=== PATIENT | male | born 1955 | race African-American/Black ===

== ENCOUNTER 2024-08-04 15:30 | Inpatient (IN) | payer MEDICARE ==
[~2024-08-04] VITALS: Ht 190.5 cm; Wt 92.1 kg
[2024-08-04 14:30] VITALS: BP 134/85; PULSE 80; RESP 18; TEMP 98.1; O2SAT 95
[2024-08-04] MEDS ORDERED: DEXTROSE 50%-WATER 25 GM/50 ML SYRINGE IVP PRN (16:30)
[2024-08-04] MEDS: HYDROCODONE/ACETAMINOPHEN 5-325 MG TABLET PO PRN (16:43)
[2024-08-04] MEDS: GABAPENTIN 400 MG CAPSULE PO SCH (17:23)
[2024-08-04] MEDS: INFLUENZA VIRUS VACCINE TVS (6MO+) 2024-25/PF 45 MCG/0.5 ML SYRINGE IM. ONE (17:24)
[2024-08-04] MEDS: PNEUMOCOCCAL VACCINE POLYVALENT 0.5 ML SYRINGE [PPSV23] IM. ONE (17:24)
[2024-08-04 17:31] LABS: GLUCOMETER DEV NAME(LOC) 2WR.2B; GLUCOSE,POINT OF CARE 130 MG/DL (70-110)
[2024-08-04 20:04] VITALS: BP 154/80; PULSE 88; RESP 18; TEMP 98.2; O2SAT 99
[2024-08-04] MEDS: ETHYL ALCOHOL 62% ANTISEPTIC NASAL SANITIZER 0.6 ML AMPUL NASAL SCH (20:07)
[2024-08-04] MEDS: DOCUSATE SODIUM 250 MG CAPSULE PO SCH (20:09)
[2024-08-04] MEDS: TAMSULOSIN HCL 0.4 MG CAPSULE PO SCH (20:09)
[2024-08-04] MEDS: ATORVASTATIN CALCIUM 40 MG TABLET PO SCH (20:10)
[2024-08-04] MEDS: SENNOSIDES 8.6 MG TABLET PO SCH (20:10)
[2024-08-04] MEDS: MELATONIN 5 MG TABLET PO SCH (20:10)
[2024-08-04] MEDS: INSULIN GLARGINE,HUM.REC.ANLOG 100 UNITS/ML SQ SCH (20:26)
[2024-08-04] MEDS: INSULIN LISPRO 100 UNITS/ML SQ PRN (20:27)
[2024-08-04 21:56] LABS: GLUCOMETER DEV NAME(LOC) 2WR.1D; GLUCOSE,POINT OF CARE 178 MG/DL (70-110)
[2024-08-04 22:00] VITALS: O2SAT 99
[2024-08-04] MEDS: HEPARIN SODIUM,PORCINE 5,000 UNITS/ML VIAL SQ SCH (23:02)
[2024-08-05] MEDS: ACETAMINOPHEN 325 MG TABLET PO PRN (03:25)
[2024-08-05 07:10] LABS: GLUCOMETER DEV NAME(LOC) 2WR.2B; GLUCOSE,POINT OF CARE 75 MG/DL (70-110)
[2024-08-05] MEDS: DAPAGLIFLOZIN PROPANEDIOL 5 MG TABLET PO SCH (08:15)
[2024-08-05 08:25] LABS: BASOPHILS % (AUTO) 1.4 % (0.0-2.0); EOSINOPHILS % (AUTO) 6.2 % (1.0-6.0); HEMATOCRIT 37.9 % (41-53); HEMOGLOBIN 12.4 g/dL (13.5-17.5); LYMPHOCYTES # (AUTO) 0.6 K/uL (1.0-4.8); MEAN CORPUSCULAR HGB CONC 32.8 G/dL (31.0-37.0); MEAN CORPUSCULAR VOLUME 91 fL (80-100); MONOCYTES # (AUTO) 0.4 K/uL (0.1-1.0); MONOCYTES % (AUTO) 16.2 % (2.0-9.0); NEUTROPHILS # (AUTO) 1.1 K/uL (1.8-7.7); NEUTROPHILS % (AUTO) 48.2 % (40.0-70.0); PLATELET COUNT (AUTO) 131 K/uL (150-450); RED BLOOD CELL COUNT(AUTO) 4.15 MIL/uL (4.50-5.90); RED CELL DISTRIBUTION WIDTH 15.7 % (11.5-14.5); WHITE BLOOD COUNT (AUTO) 2.3 K/uL (4.5-11.0)
[2024-08-05 08:30] VITALS: BP 130/83; PULSE 88; RESP 18; TEMP 98.2; O2SAT 98
[2024-08-05 08:36] LABS: ALANINE AMINOTRANSFERASE 83 U/L (12-78); ALBUMIN 2.9 g/dL (3.4-5.0); ALKALINE PHOSPHATASE 62 U/L (46-116); ANION GAP 5 mmol/L (8-16); ASPARTATE AMINOTRANSFERASE 51 U/L (15-37); BILIRUBIN,TOTAL 0.7 mg/dL (0.1-1.0); CALCIUM, TOTAL 8.7 mg/dL (8.8-10.5); CARBON DIOXIDE 31 mmol/L (22-29); CHLORIDE 101 mmol/L (98-107); CREATININE 0.72 mg/dL (0.60-1.30); GLOMERULAR FILTR. RATE CALC > 60 mL/min (>60); GLUCOSE,RANDOM 135 mg/dL (70-110); POTASSIUM 4.1 mmol/L (3.5-5.1); SODIUM SERUM 137 mmol/L (136-145); TOTAL PROTEIN, SERUM 7.3 g/dL (6.4-8.2); UREA NITROGEN, BLOOD 16 mg/dL (7-18)
[2024-08-05 08:46] LABS: RBC MORPHOLOGY COMMENT NORMAL RBC MORPH
[2024-08-05 11:26] LABS: GLUCOMETER DEV NAME(LOC) 2WR.2B; GLUCOSE,POINT OF CARE 126 MG/DL (70-110)
[2024-08-05 11:47] VITALS: O2SAT 98
[2024-08-05] MEDS: LIDOCAINE 5% 36 GM OINTMENT TP PRN (11:57)
[2024-08-05 17:16] LABS: GLUCOMETER DEV NAME(LOC) 2WR.1D; GLUCOSE,POINT OF CARE 150 MG/DL (70-110)
[2024-08-05 20:19] VITALS: BP 136/75; PULSE 86; RESP 18; TEMP 98.7; O2SAT 99
[2024-08-05] MEDS: NORTRIPTYLINE HCL 25 MG CAPSULE PO SCH (21:03)
[2024-08-05 21:55] LABS: GLUCOMETER DEV NAME(LOC) 2WR.1D; GLUCOSE,POINT OF CARE 104 MG/DL (70-110)
[2024-08-05 22:38] VITALS: O2SAT 99
[2024-08-05 23:30] VITALS: BP 131/81; PULSE 85; RESP 20; TEMP 98.4; O2SAT 98
[2024-08-06 06:55] LABS: GLUCOMETER DEV NAME(LOC) 2WR.1D; GLUCOSE,POINT OF CARE 149 MG/DL (70-110)
[2024-08-06 08:02] VITALS: BP 139/92; PULSE 100; RESP 18; TEMP 97.9; O2SAT 98
[2024-08-06 08:03] VITALS: PULSE 88
[2024-08-06 11:40] VITALS: BP 140/106; PULSE 89; RESP 18
[2024-08-06 11:48] VITALS: BP 135/94; PULSE 92; RESP 18
[2024-08-06 11:55] VITALS: BP 135/97; PULSE 102; RESP 18
[2024-08-06 13:01] LABS: GLUCOMETER DEV NAME(LOC) 2WR.2B; GLUCOSE,POINT OF CARE 94 MG/DL (70-110)
[2024-08-06 18:00] LABS: GLUCOMETER DEV NAME(LOC) 2WR.2B; GLUCOSE,POINT OF CARE 209 MG/DL (70-110)
[2024-08-06 20:00] VITALS: BP 125/77; PULSE 89; RESP 18; TEMP 98.6; O2SAT 98
[2024-08-06 21:31] LABS: GLUCOMETER DEV NAME(LOC) 2WR.1D; GLUCOSE,POINT OF CARE 145 MG/DL (70-110)
[2024-08-07 06:34] VITALS: BP 121/79; PULSE 90; RESP 18; TEMP 98.2; O2SAT 99
[2024-08-07 07:06] LABS: GLUCOMETER DEV NAME(LOC) 2WR.2B; GLUCOSE,POINT OF CARE 118 MG/DL (70-110)
[2024-08-07 08:01] VITALS: BP 128/85; PULSE 96; RESP 19; TEMP 98.3; O2SAT 99
[2024-08-07] MEDS: ASPIRIN 81 MG CHEWABLE TABLET PO SCH (08:08)
[2024-08-07 12:55] LABS: GLUCOMETER DEV NAME(LOC) 2WR.2B; GLUCOSE,POINT OF CARE 170 MG/DL (70-110)
[2024-08-07 17:30] LABS: GLUCOMETER DEV NAME(LOC) 2WR.2B; GLUCOSE,POINT OF CARE 151 MG/DL (70-110)
[2024-08-07 20:02] VITALS: BP 129/77; PULSE 89; RESP 19; TEMP 98.1; O2SAT 98
[2024-08-07 20:35] LABS: GLUCOMETER DEV NAME(LOC) 2WR.2B; GLUCOSE,POINT OF CARE 188 MG/DL (70-110)
[2024-08-07 22:46] VITALS: O2SAT 98
[2024-08-08 06:51] LABS: GLUCOMETER DEV NAME(LOC) 2WR.1D; GLUCOSE,POINT OF CARE 77 MG/DL (70-110)
[2024-08-08 08:35] VITALS: BP 131/89; PULSE 97; RESP 19; TEMP 97.9; O2SAT 94
[2024-08-08 09:43] VITALS: O2SAT 94
[2024-08-08 12:21] LABS: GLUCOMETER DEV NAME(LOC) 2WR.2B; GLUCOSE,POINT OF CARE 129 MG/DL (70-110)
[2024-08-08 18:50] LABS: GLUCOMETER DEV NAME(LOC) 2WR.2B; GLUCOSE,POINT OF CARE 230 MG/DL (70-110)
[2024-08-08 20:07] VITALS: BP 102/59; PULSE 90; RESP 19; TEMP 98.3; O2SAT 98
[2024-08-08 20:15] LABS: GLUCOMETER DEV NAME(LOC) 2WR.2B; GLUCOSE,POINT OF CARE 144 MG/DL (70-110)
[2024-08-08 21:13] VITALS: O2SAT 98
[2024-08-09 07:56] LABS: GLUCOMETER DEV NAME(LOC) 2WR.2B; GLUCOSE,POINT OF CARE 55 MG/DL (70-110)
[2024-08-09 07:56] LABS: GLUCOMETER DEV NAME(LOC) 2WR.2B; GLUCOSE,POINT OF CARE 60 MG/DL (70-110)
[2024-08-09 08:00] VITALS: BP 131/88; PULSE 98; RESP 18; TEMP 98.2; O2SAT 100
[2024-08-09 12:51] LABS: GLUCOMETER DEV NAME(LOC) 2WR.2B; GLUCOSE,POINT OF CARE 74 MG/DL (70-110)
[2024-08-09 17:56] LABS: GLUCOMETER DEV NAME(LOC) 2WR.2B; GLUCOSE,POINT OF CARE 107 MG/DL (70-110)
[2024-08-09 20:00] VITALS: BP 118/68; PULSE 91; RESP 20; TEMP 98.3; O2SAT 97
[2024-08-09 20:45] LABS: GLUCOMETER DEV NAME(LOC) 2WR.1D; GLUCOSE,POINT OF CARE 145 MG/DL (70-110)
[2024-08-10] MEDS ORDERED: SENN-376 PO (02:23)
[2024-08-10] MEDS ORDERED: ATOR40TA28 PO (02:23)
[2024-08-10] MEDS ORDERED: GABA-1201 PO (02:23)
[2024-08-10] MEDS ORDERED: INSU100V SQ (02:23)
[2024-08-10] MEDS ORDERED: INSLAN SQ (02:23)
[2024-08-10] MEDS ORDERED: DOCU-412 PO (02:23)
[2024-08-10] MEDS ORDERED: TAMS0.4C94 PO (02:23)
[2024-08-10] MEDS ORDERED: DAPA10TA PO (02:23)
[2024-08-10] MEDS ORDERED: NORT25 PO (02:23)
[2024-08-10] MEDS ORDERED: ASPI-1450 PO (02:23)
[2024-08-10 06:51] LABS: GLUCOMETER DEV NAME(LOC) 2WR.1D; GLUCOSE,POINT OF CARE 81 MG/DL (70-110)
[2024-08-10 08:05] VITALS: BP 123/87; PULSE 87; RESP 18; TEMP 98.4; O2SAT 98
[2024-08-10 09:35] VITALS: O2SAT 98
[2024-08-10 11:56] LABS: GLUCOMETER DEV NAME(LOC) 2WR.2B; GLUCOSE,POINT OF CARE 90 MG/DL (70-110)
[2024-08-10 17:06] LABS: GLUCOMETER DEV NAME(LOC) 2WR.2B; GLUCOSE,POINT OF CARE 102 MG/DL (70-110)
[2024-08-10 20:00] VITALS: BP 132/87; PULSE 97; RESP 18; TEMP 98.5; O2SAT 100
[2024-08-10 20:25] LABS: GLUCOMETER DEV NAME(LOC) 2WR.2B; GLUCOSE,POINT OF CARE 153 MG/DL (70-110)
[2024-08-10] MEDS: SENNOSIDES 8.6 MG TABLET PO SCH (20:37)
[2024-08-11 01:23] VITALS: O2SAT 97
[2024-08-11 06:46] LABS: GLUCOMETER DEV NAME(LOC) 2WR.2B; GLUCOSE,POINT OF CARE 84 MG/DL (70-110)
[2024-08-11 08:00] VITALS: BP 133/87; PULSE 84; RESP 18; TEMP 97.7; O2SAT 100
[2024-08-11 12:35] LABS: BASOPHILS % (AUTO) 0.9 % (0.0-2.0); EOSINOPHILS % (AUTO) 4.1 % (1.0-6.0); HEMATOCRIT 42.4 % (41-53); HEMOGLOBIN 13.7 g/dL (13.5-17.5); LYMPHOCYTES # (AUTO) 0.8 K/uL (1.0-4.8); MEAN CORPUSCULAR HEMOGLOBIN 29.7 pg (26.0-34.0); MEAN CORPUSCULAR HGB CONC 32.4 G/dL (31.0-37.0); MEAN CORPUSCULAR VOLUME 92 fL (80-100); MONOCYTES # (AUTO) 0.4 K/uL (0.1-1.0); MONOCYTES % (AUTO) 13.4 % (2.0-9.0); NEUTROPHILS # (AUTO) 1.4 K/uL (1.8-7.7); NEUTROPHILS % (AUTO) 51.6 % (40.0-70.0); PLATELET COUNT (AUTO) 154 K/uL (150-450); RED BLOOD CELL COUNT(AUTO) 4.62 MIL/uL (4.50-5.90); RED CELL DISTRIBUTION WIDTH 15.8 % (11.5-14.5); WHITE BLOOD COUNT (AUTO) 2.6 K/uL (4.5-11.0)
[2024-08-11 12:50] LABS: GLUCOMETER DEV NAME(LOC) 2WR.1D; GLUCOSE,POINT OF CARE 111 MG/DL (70-110)
[2024-08-11 13:01] LABS: ANION GAP 7 mmol/L (8-16); CALCIUM, TOTAL 9.1 mg/dL (8.8-10.5); CARBON DIOXIDE 29 mmol/L (22-29); CHLORIDE 100 mmol/L (98-107); CREATININE 0.85 mg/dL (0.60-1.30); GLOMERULAR FILTR. RATE CALC > 60 mL/min (>60); GLUCOSE,RANDOM 113 mg/dL (70-110); POTASSIUM 4.8 mmol/L (3.5-5.1); SODIUM SERUM 136 mmol/L (136-145); UREA NITROGEN, BLOOD 22 mg/dL (7-18)
[2024-08-11 17:55] LABS: GLUCOMETER DEV NAME(LOC) 2WR.1D; GLUCOSE,POINT OF CARE 193 MG/DL (70-110)
[2024-08-11 19:57] VITALS: BP 105/64; PULSE 70; RESP 18; TEMP 98.3; O2SAT 99
[2024-08-11 20:26] LABS: GLUCOMETER DEV NAME(LOC) 2WR.1D; GLUCOSE,POINT OF CARE 136 MG/DL (70-110)
[2024-08-11 20:50] VITALS: O2SAT 99
[2024-08-12 06:36] LABS: GLUCOMETER DEV NAME(LOC) 2WR.2B; GLUCOSE,POINT OF CARE 83 MG/DL (70-110)
[2024-08-12 08:05] VITALS: O2SAT 98
[2024-08-12 09:29] VITALS: BP 108/78; PULSE 105; RESP 19; TEMP 98.1; O2SAT 95
[2024-08-12 12:30] LABS: GLUCOMETER DEV NAME(LOC) 2WR.2B; GLUCOSE,POINT OF CARE 107 MG/DL (70-110)
[2024-08-12 17:21] LABS: GLUCOMETER DEV NAME(LOC) 2WR.2B; GLUCOSE,POINT OF CARE 315 MG/DL (70-110)
[2024-08-12 19:38] VITALS: BP 107/73; PULSE 72; RESP 18; TEMP 98.2; O2SAT 97
[2024-08-12 20:17] VITALS: O2SAT 97
[2024-08-12] MEDS: NORTRIPTYLINE HCL 25 MG CAPSULE PO SCH (20:31)
[2024-08-12 23:06] LABS: GLUCOMETER DEV NAME(LOC) 2WR.2B; GLUCOSE,POINT OF CARE 185 MG/DL (70-110)
[2024-08-12 23:33] VITALS: BP 111/69; PULSE 81; RESP 18; TEMP 98; O2SAT 98
[2024-08-13 07:46] LABS: GLUCOMETER DEV NAME(LOC) 2WR.1D; GLUCOSE,POINT OF CARE 63 MG/DL (70-110)
[2024-08-13 07:46] LABS: GLUCOMETER DEV NAME(LOC) 2WR.1D; GLUCOSE,POINT OF CARE 68 MG/DL (70-110)
[2024-08-13 08:00] VITALS: BP 145/96; PULSE 90; RESP 18; TEMP 98.3; O2SAT 99
[2024-08-13 12:15] LABS: GLUCOMETER DEV NAME(LOC) 2WR.1D; GLUCOSE,POINT OF CARE 85 MG/DL (70-110)
[2024-08-13 17:40] LABS: GLUCOMETER DEV NAME(LOC) 2WR.1D; GLUCOSE,POINT OF CARE 229 MG/DL (70-110)
[2024-08-13 20:00] VITALS: BP 105/75; PULSE 98; RESP 20; TEMP 98.5; O2SAT 97
[2024-08-14] MEDS ORDERED: HYDR-4062 PO (03:14)
[2024-08-14] MEDS ORDERED: ACET-2247 PO (03:14)
[2024-08-14 05:11] LABS: GLUCOMETER DEV NAME(LOC) 2WR.1D; GLUCOSE,POINT OF CARE 218 MG/DL (70-110)
[2024-08-14 06:41] LABS: GLUCOMETER DEV NAME(LOC) 2WR.2B; GLUCOSE,POINT OF CARE 61 MG/DL (70-110)
[2024-08-14 08:00] VITALS: BP 116/67; PULSE 103; RESP 18; TEMP 98.3; O2SAT 98
[2024-08-14 12:50] LABS: GLUCOMETER DEV NAME(LOC) 2WR.2B; GLUCOSE,POINT OF CARE 138 MG/DL (70-110)
[2024-08-14 18:16] LABS: GLUCOMETER DEV NAME(LOC) 2WR.2B; GLUCOSE,POINT OF CARE 160 MG/DL (70-110)
[2024-08-14 20:30] VITALS: BP 102/86; PULSE 86; RESP 18; TEMP 97.3; O2SAT 100
[2024-08-14 20:47] VITALS: O2SAT 100
[2024-08-14 21:51] LABS: GLUCOMETER DEV NAME(LOC) 2WR.2B; GLUCOSE,POINT OF CARE 178 MG/DL (70-110)
[2024-08-15 06:46] LABS: GLUCOMETER DEV NAME(LOC) 2WR.1D; GLUCOSE,POINT OF CARE 60 MG/DL (70-110)
[2024-08-15 08:04] VITALS: BP 114/68; PULSE 91; RESP 18; TEMP 98; O2SAT 98
[2024-08-15 12:10] LABS: GLUCOMETER DEV NAME(LOC) 2WR.1D; GLUCOSE,POINT OF CARE 96 MG/DL (70-110)
[2024-08-15 17:11] LABS: GLUCOMETER DEV NAME(LOC) 2WR.1D; GLUCOSE,POINT OF CARE 141 MG/DL (70-110)
[2024-08-15] MEDS: INSULIN GLARGINE,HUM.REC.ANLOG 100 UNITS/ML SQ SCH (20:11)
[2024-08-15 20:34] VITALS: BP 113/62; PULSE 88; RESP 19; TEMP 98.4; O2SAT 97
[2024-08-15 21:20] LABS: GLUCOMETER DEV NAME(LOC) 2WR.1D; GLUCOSE,POINT OF CARE 197 MG/DL (70-110)
[2024-08-15 21:59] VITALS: O2SAT 97
[2024-08-16 07:11] LABS: GLUCOMETER DEV NAME(LOC) 2WR.1D; GLUCOSE,POINT OF CARE 96 MG/DL (70-110)
[2024-08-16 07:11] LABS: GLUCOMETER DEV NAME(LOC) 2WR.1D; GLUCOSE,POINT OF CARE 58 MG/DL (70-110)
[2024-08-16 08:05] VITALS: BP 136/102; PULSE 88; RESP 18; TEMP 97.9; O2SAT 100
[2024-08-16] MEDS: INSULIN GLARGINE,HUM.REC.ANLOG 100 UNITS/ML SQ SCH ×2 (08:33→20:09)
[2024-08-16 13:06] LABS: GLUCOMETER DEV NAME(LOC) 2WR.1D; GLUCOSE,POINT OF CARE 90 MG/DL (70-110)
[2024-08-16 17:51] LABS: GLUCOMETER DEV NAME(LOC) 2WR.1D; GLUCOSE,POINT OF CARE 155 MG/DL (70-110)
[2024-08-16 19:50] VITALS: BP 111/61; PULSE 90; RESP 19; TEMP 98; O2SAT 97
[2024-08-16 20:15] VITALS: O2SAT 97
[2024-08-16 20:26] LABS: GLUCOMETER DEV NAME(LOC) 2WR.1D; GLUCOSE,POINT OF CARE 156 MG/DL (70-110)
[2024-08-17 06:50] LABS: GLUCOMETER DEV NAME(LOC) 2WR.1D; GLUCOSE,POINT OF CARE 99 MG/DL (70-110)
[2024-08-17 08:00] VITALS: BP 115/71; PULSE 100; RESP 18; TEMP 97.7; O2SAT 100
[2024-08-17] MEDS ORDERED: TAMS0.4C94 PO (09:33)
[2024-08-17] MEDS ORDERED: ASPI-1450 PO (09:33)
[2024-08-17] MEDS ORDERED: ATOR40TA71 PO (09:33)
[2024-08-17] MEDS ORDERED: SENN-374 PO (09:33)
[2024-08-17] MEDS ORDERED: GABA-1201 PO (09:33)
[2024-08-17] MEDS ORDERED: DAPA5TAB6 PO (09:33)
[2024-08-17] MEDS ORDERED: NORT25 PO (09:33)
[2024-08-17] MEDS ORDERED: INSU100V SQ (09:33)
[2024-08-17] MEDS ORDERED: LID5O TP (09:33)
[2024-08-17] MEDS ORDERED: INSLAN SQ ×2 (09:33)
[2024-08-17] MEDS ORDERED: DOCU-412 PO (09:33)
[2024-08-17 12:10] LABS: GLUCOMETER DEV NAME(LOC) 2WR.1D; GLUCOSE,POINT OF CARE 162 MG/DL (70-110)
== END 2024-08-17 14:59 | disposition home health service (06) | DRG 95 ==
LOC: 2WR 16:16
PROVIDERS: ADMIT Physical Medicine & Rehabilitation; ATTEND Physical Medicine & Rehabilitation
DX: G61.0 Guillain-Barre syndrome (principal); E46 Unspecified protein-calorie malnutrition; G82.20 Paraplegia, unspecified; G90.89 Other disorders of autonomic nervous system; E11.65 Type 2 diabetes mellitus with hyperglycemia; G31.84 Mild cognitive impairment of uncertain or unknown etiology; I10 Essential (primary) hypertension; I25.10 Atherosclerotic heart disease of native coronary artery without angina pectoris; E11.43 Type 2 diabetes mellitus with diabetic autonomic (poly)neuropathy; Z74.09 Other reduced mobility; M48.02 Spinal stenosis, cervical region; R32 Unspecified urinary incontinence; R26.9 Unspecified abnormalities of gait and mobility; G47.00 Insomnia, unspecified; E11.40 Type 2 diabetes mellitus with diabetic neuropathy, unspecified; R74.01 Elevation of levels of liver transaminase levels; M21.372 Foot drop, left foot; M21.371 Foot drop, right foot; I70.8 Atherosclerosis of other arteries; N31.9 Neuromuscular dysfunction of bladder, unspecified; Z68.25 Body mass index [BMI] 25.0-25.9, adult; Z91.199 Patient's noncompliance with other medical treatment and regimen due to unspecified reason
CPT/HCPCS: 80048; 80053; 82962; 85025; 87081; 92507; 92523; 93970; 97110; 97112; 97116; 97163; 97167; 97530; 97535; 99285; 99366; J1644; J1815